=== PATIENT | male | born 2000 | race Caucasian/White ===

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

== ENCOUNTER 2018-08-10 16:34 | Emergency (ER) | payer OTHER ==
[~2018-08-10] VITALS: Ht 182.9 cm; Wt 86.2 kg
[2018-08-10 16:40] VITALS: BP 130/82; Ht 182.9 cm; Wt 86.2 kg
[2018-08-10 18:20] LABS: PLATELET COUNT 315 x10^3mcL (130-400); RED CELL DISTRIBUTION WIDTH 12.4 % (11.5-14.5)
[2018-08-10 19:00] LABS: BAND NEUTROPHIL 3 % (0-10); METAMYELOCTE 2 % (0-2); MONOCYTE 7 % (0-7); SEGMENTED NEUTROPHILS 77 % (37-75)
[2018-08-10 19:01] LABS: rbc morphology (normal/abnorm) NORMAL (NORMAL)
[2018-08-10 19:02] LABS: PLATELET MORPHOLOGY FEW LARGE PLATELET
== END 2018-08-10 19:05 | disposition home or self-care (01) ==
LOC: ED 16:34
PROVIDERS: Emergency Medicine
DX: I77.6 Arteritis, unspecified (principal)

== ENCOUNTER 2019-03-22 18:53 | Emergency (ER) | payer OTHER ==
[~2019-03-22] VITALS: Ht 182.9 cm; Wt 91.2 kg
[2019-03-22 19:00] VITALS: BP 138/82; Ht 182.9 cm; Wt 91.2 kg
== END 2019-03-22 21:23 | disposition left against medical advice (07) ==
LOC: ED 18:53
DX: M79.622 Pain in left upper arm (principal)

== ENCOUNTER 2020-02-25 11:58 | Emergency (ER) | payer OTHER, SELFPAY ==
[~2020-02-25] VITALS: Ht 182.9 cm; Wt 90.7 kg
[2020-02-25 12:25] VITALS: BP 138/82; Ht 182.9 cm; Wt 90.7 kg
== END 2020-02-25 14:33 | disposition home or self-care (01) ==
LOC: ED 11:58
DX: M79.10 Myalgia, unspecified site (principal); J02.9 Acute pharyngitis, unspecified; Z20.828 Contact with and (suspected) exposure to other viral communicable diseases
CPT/HCPCS: U0003